=== PATIENT | male | born 1960 | race Caucasian/White ===

== ENCOUNTER 2023-06-24 19:26 | Emergency (ER) | payer BC ==
[~2023-06-24] VITALS: Ht 182.9 cm; Wt 95.5 kg
[~2023-06-24 19:26] MED LIST: ACIPHEX20 MG PO; ADVAIR 250/28 DISKUS IH; ALBUTEROL0.83 MG/ML IH; ALLEGRA180 MG PO; AMOXICILLIN 8751 TAB PO; FARXIGA5; GLYBURIDE5 MG PO; HYZAAR 50-12.1 UDTAB PO; LEVAQUIN 750MG750 M1 PO; METOPROLOL50 MG PO; MIDRIN; PAXIL CR37.5 MG PO; SINGULAIR10 MG PO; ZOCOR 10MG10 MG PO
[2023-06-24 19:59] LABS: BASO # 0.1 K/mm3 (0.0-0.2); BASO % 0.4 % (0.0-2.0); EOS # 0.1 K/mm3 (0.0-0.7); EOS % 1.1 % (0.0-4.0); GRAN # 10.3 K/mm3 (1.4-6.5); HEMATOCRIT 46.4 % (42.0-52.0); HEMOGLOBIN 15.5 g/dl (13.5-18.0); LYMPH # 1.8 K/mm3 (1.2-3.4); LYMPH % 13.4 % (20.0-51.0); MEAN CELL VOLUME 86 fl (80.0-100.0); MEAN CORPUSCULAR HEMOGLOBIN 29 pg (27-31); MEAN CORPUSCULAR HGB CONC 33 g/dl (33.0-37.0); MEAN PLATELET VOLUME 9.4 fl (7.4-10.4); MONO # 0.9 K/mm3 (0.1-0.6); MONO % 6.6 % (1.7-9.3); PLATELET COUNT 234 K/mm3 (130-400); RED BLOOD COUNT 5.43 M/mm3 (4.20-5.60); REDCELL DISTRIBUTION WIDTH-CV 13.3 % (11.5-14.5)
[2023-06-24 20:18] VITALS: TEMP 98.2
[2023-06-24 20:21] LABS: ALANINE AMINOTRANSFERASE 18 U/L (0-55); ALBUMIN 3.9 gm/dL (3.4-4.8); ALKALINE PHOSPHATASE 78 U/L (40-150); ANION GAP 13 mmol/L (7-16); AST,SGOT 12 U/L (5-34); BILIRUBIN,TOTAL 0.8 mg/dL (0.2-1.2); BLOOD UREA NITROGEN 6 mg/dL (8-26); CARBON DIOXIDE 20 mmol/L (23-31); CHLORIDE 105 mmol/L (98-107); CREATININE, serum 0.76 mg/dL (0.72-1.25); GLUCOSE 230 mg/dL (70-99); POTASSIUM 3.6 mmol/L (3.5-4.5); SODIUM 138 mmol/L (136-145)
[2023-06-24 20:27] LABS: TROPONIN-I < 0.010 ng/mL (0.00-0.033)
[2023-06-24] MEDS ORDERED: Cyclobenzaprine 10 MG TAB PO ONE (21:00)
[2023-06-24] MEDS ORDERED: Ketorolac 30 MG/ML VIAL IV ONE (21:00)
[2023-06-24 21:17] LABS: COLLECTION METHOD CLEAN CATCH
[2023-06-24 21:30] LABS: URINE APPEARANCE Clear (CLEAR/HAZY); URINE BACTERIA Rare /hpf (NONE SEEN); URINE BLOOD Negative (NEGATIVE); URINE COLOR Yellow (YELLOW); URINE GLUCOSE 2+ (NEGATIVE); URINE KETONE 2+ (NEGATIVE); URINE NITRATE Negative (NEGATIVE); URINE PROTEIN(semi-quant) TRACE (NEGATIVE); URINE UROBILINOGEN 0.2 E.U/dL (0.2-1.0)
[2023-06-24 21:31] LABS: MUCOUS Present (NOT PRESENT); SQUAMOUS EPITHELIAL 0-2 /hpf (0-10); URINE RBC None Seen /hpf (0-2)
[2023-06-24] MEDS ORDERED: FLEXERIL 1010 MG/TAB PO (22:11)
[2023-06-24] MEDS ORDERED: NAPROSYN500 MG PO (22:11)
[2023-06-24] MEDS ORDERED: Home Cyclobenzaprine 10 MG #2 TABS/PACK PO ONE (22:15)
[2023-06-24 22:21] VITALS: BP 126/64; PULSE 88
== END 2023-06-24 22:37 | disposition home or self-care (01) ==
LOC: COL.ER 19:26
PROVIDERS: Nurse Practitioner Primary Care
DX: M62.838 Other muscle spasm (principal); R11.2 Nausea with vomiting, unspecified
CPT/HCPCS: J1885